=== PATIENT | male | born 1950 | race Caucasian/White ===

== ENCOUNTER 2023-03-22 12:04 | Inpatient (IN) | payer MEDICAID, MEDICARE ==
[~2023-03-22] VITALS: Ht 172.7 cm; Wt 86.2 kg
[~2023-03-22 12:04] MED LIST: ALBU6.7H3 INH; APIX5TAB PO; ATOR10TA PO; BACL-141 PO; ESCI10TA PO; FERR325T6 PO; FURO20TA4 PO; GABA-532 PO; INDA1.255 PO; LOSA50TA41 PO; METH-653 MT; POLY17PO3 MT; PROT40 PO; TERA5CAP4 PO; TOPUD PO; [UNRECOGNIZED DRUG - CODE]
[2023-03-22] MEDS ORDERED: ACETAMINOPHEN 325MG TABLET PO STA (12:13)
[2023-03-22] MEDS ORDERED: TETANUS, DIPHTHERIA, PERTUSSIS VAC/PF 0.5ML (>10YR OLD) IM ONE (12:15)
[2023-03-22] MEDS ORDERED: SODIUM CHLORIDE 0.9% 1,000 ML IV ONE (12:15)
[2023-03-22 12:50] LABS: EOSINOPHILS % 11.7 % (0.0-5.0); HEMATOCRIT. 41.4 % (42.0-52.0); HEMOGLOBIN. 13.5 g/dL (14.0-18.0); LYMPHOCYTES % 19.9 % (20.0-50.0); MEAN CORPUSCULAR HEMOGLOBIN 30.8 pg (28.0-32.0); MEAN CORPUSCULAR HGB CONC 32.6 g/dL (31.0-37.0); MEAN CORPUSCULAR VOLUME 94.6 fL (80.0-94.0); MEAN PLATELET VOLUME 7.1 fl (7.4-10.4); MONOCYTES % 10.5 % (2.0-8.0); NEUTROPHILS % 56.9 % (40.0-76.0); PLATELET 379 x1000/uL (130-400); RED BLOOD CELL COUNT 4.38 mill/uL (4.7-6.1); WHITE BLOOD COUNT 5.9 x1000/uL (4.5-11.0)
[2023-03-22 13:02] LABS: CHLORIDE 104 mEq/L (98-107); INDEX HEMOLYSI 1 (1-3); INDEX ICTERIC 1 (1-4); INDEX LIPEMIC 1 (1-3); POTASSIUM 4.4 mEq/L (3.5-5.1); SODIUM 138 mEq/L (136-145)
[2023-03-22 13:03] LABS: CALCIUM 9.9 mg/dL (8.5-10.1); INR 1.1; PROTHROMBIN TIME 11.7 sec (9.6-11.0)
[2023-03-22 13:11] LABS: ALANINE AMINOTRANSFERASE 28 IU/L (13-61); ALBUMIN 2.9 g/dL (3.4-5.0); ASPARTATE AMINOTRANSFERASE 24 IU/L (15-37); BILIRUBIN TOTAL 0.5 mg/dL (0.1-1.0); CARBON DIOXIDE 32 mEq/L (21-32); CREATININE 1.1 mg/dL (0.6-1.3); GLUCOSE 88 mg/dL (70-105); PROTEIN TOTAL 7.4 g/dL (6.0-8.3); TROPONIN I HIGH SENSITIVITY 6 ng/L (<78); UREA NITROGEN BLOOD 26 mg/dL (7-21)
[2023-03-22] MEDS ORDERED: GUAIFENESIN 200MG/10ML SUGAR FREE UDC PO PRN (14:00)
[2023-03-22] MEDS ORDERED: ONDANSETRON HCL 4MG/2ML INJ IV PRN (14:00)
[2023-03-22] MEDS ORDERED: SODIUM CHLORIDE 0.9% 1,000 ML IV SCH (14:00)
[2023-03-22] MEDS ORDERED: IPRATROPIUM/ALBUTEROL 0.5-3(2.5)MG/3ML NEB HHN PRN (14:00)
[2023-03-22] MEDS ORDERED: CLONIDINE 0.1MG TABLET PO PRN (14:00)
[2023-03-22] MEDS ORDERED: MAGNESIUM/ALUMINUM HYDROXIDE/SIMETHICONE 30ML UDC PO PRN (14:00)
[2023-03-22] MEDS ORDERED: DOCUSATE SODIUM 100MG CAPSULE PO PRN (14:00)
[2023-03-22] MEDS ORDERED: ACETAMINOPHEN 325MG TABLET PO PRN ×2 (14:00)
[2023-03-22] MEDS ORDERED: INDAPAMIDE 1.25MG TABLET PO SCH (14:30)
[2023-03-22] MEDS ORDERED: PANTOPRAZOLE 40MG DR TABLET PO SCH (14:30)
[2023-03-22] MEDS ORDERED: MEDICATION NOT ON FORMULARY EA (Escitalopram Oxalate (Lexapro) 20 MG) PO SCH (14:30)
[2023-03-22] MEDS ORDERED: METHOCARBAMOL 750MG TABLET PO PRN (14:30)
[2023-03-22 15:23] LABS: BILIRUBIN DIRECT 0.2 mg/dL (0.0-0.2); BILIRUBIN TOTAL 0.4 mg/dL (0.1-1.0); THYROID STIMULATING HORMONE 3.2 uIU/mL (0.36-3.74)
[2023-03-22 15:25] LABS: CREATINE KINASE 34 IU/L (39-308); INDEX HEMOLYSI 1 (1-3); TROPONIN I HIGH SENSITIVITY 7 ng/L (<78)
[2023-03-22 16:02] LABS: VITAMIN B12 SERUM 369 pg/mL (211-911)
[2023-03-22] MEDS: FUROSEMIDE 20MG TABLET PO SCH (16:31)
[2023-03-22] MEDS: APIXABAN 5 MG TABLET PO SCH ×2 (16:31→20:07)
[2023-03-22] MEDS: CITALOPRAM HYDROBROMIDE 10MG TABLET PO SCH (16:32)
[2023-03-22] MEDS: GABAPENTIN 300MG CAPSULE PO SCH ×2 (16:32→18:32)
[2023-03-22] MEDS: POLYETHYLENE GLYCOL 3350 (17GM) 1 DOSE PACK PO SCH (16:35)
[2023-03-22 17:16] LABS: PREALBUMIN 15.7 mg/dL (20.0-40.0)
[2023-03-22] MEDS: LOSARTAN 50 MG TABLET PO SCH (19:03)
[2023-03-22 20:00] VITALS: BP 117/81; PULSE 71; RESP 16; TEMP 97.5
[2023-03-22] MEDS: ATORVASTATIN CALCIUM 10MG TABLET PO SCH (20:07)
[2023-03-22] MEDS: PANTOPRAZOLE 40MG DR TABLET PO SCH (20:07)
[2023-03-22] MEDS: TERAZOSIN HCL 5MG CAPSULE PO SCH (21:00)
[2023-03-23] VITALS (13 sets, daily range): BP systolic 71–127; BP diastolic 36–85; PULSE 65–88; RESP 16–20; TEMP 96.5–98.6
[2023-03-23] MEDS ORDERED: SODIUM CHLORIDE 0.9% 500 ML IV ONE (00:30)
[2023-03-23 01:15] LABS: INDEX HEMOLYSI 4 (1-3)
[2023-03-23 01:22] LABS: CREATINE KINASE 77 IU/L (39-308); TROPONIN I HIGH SENSITIVITY 9 ng/L (<78)
[2023-03-23] MEDS ORDERED: SODIUM CHLORIDE 0.9% 250 ML IV ONE (02:30)
[2023-03-23] MEDS: KETOROLAC 15MG/ML VIAL IV PRN ×2 (03:20→13:12)
[2023-03-23 05:40] LABS: POTASSIUM 4.2 mEq/L (3.5-5.1)
[2023-03-23 05:42] LABS: CALCIUM 9.2 mg/dL (8.5-10.1)
[2023-03-23 05:46] LABS: CREATININE 1.4 mg/dL (0.6-1.3)
[2023-03-23] MEDS: LOSARTAN 50 MG TABLET PO SCH ×2 (08:06→08:40)
[2023-03-23] MEDS: FUROSEMIDE 20MG TABLET PO SCH (08:06)
[2023-03-23] MEDS: GABAPENTIN 300MG CAPSULE PO SCH (08:06)
[2023-03-23] MEDS: CITALOPRAM HYDROBROMIDE 10MG TABLET PO SCH (08:06)
[2023-03-23] MEDS: PANTOPRAZOLE 40MG DR TABLET PO SCH (08:07)
[2023-03-23] MEDS: APIXABAN 5 MG TABLET PO SCH ×2 (08:08→16:40)
[2023-03-23] MEDS: POLYETHYLENE GLYCOL 3350 (17GM) 1 DOSE PACK PO SCH ×2 (08:08→08:40)
[2023-03-23 08:35] LABS: EOSINOPHILS % 10.9 % (0.0-5.0); HEMATOCRIT. 32.8 % (42.0-52.0); HEMOGLOBIN. 10.5 g/dL (14.0-18.0); LYMPHOCYTES % 23.8 % (20.0-50.0); MEAN CORPUSCULAR HEMOGLOBIN 30.6 pg (28.0-32.0); MEAN CORPUSCULAR HGB CONC 32.1 g/dL (31.0-37.0); MEAN CORPUSCULAR VOLUME 95.4 fL (80.0-94.0); MEAN PLATELET VOLUME 7.1 fl (7.4-10.4); MONOCYTES % 13.4 % (2.0-8.0); NEUTROPHILS % 50.9 % (40.0-76.0); PLATELET 314 x1000/uL (130-400); RED BLOOD CELL COUNT 3.44 mill/uL (4.7-6.1); RED CELL DISTRIBUTION WIDTH 14.8 % (11.6-14.6); WHITE BLOOD COUNT 5.9 x1000/uL (4.5-11.0)
[2023-03-23] MEDS ORDERED: INDAPAMIDE 1.25MG TABLET PO SCH (09:00)
[2023-03-23] MEDS ORDERED: LOSA100T33 PO (18:02)
[2023-03-23] MEDS ORDERED: METH-773 PO (18:10)
[2023-03-23] MEDS ORDERED: IPRA3AMP9 HHN (18:28)
[2023-03-23] MEDS ORDERED: ONDA4TAB11 PO (18:28)
[2023-03-23] MEDS ORDERED: CARV3.1242 PO (18:28)
[2023-03-23] MEDS ORDERED: TAMS-11 PO (18:28)
[2023-03-23] MEDS ORDERED: BUPR1TAB34 SL (18:28)
[2023-03-23] MEDS: ATORVASTATIN CALCIUM 10MG TABLET PO SCH (21:37)
[2023-03-23] MEDS: TERAZOSIN HCL 5MG CAPSULE PO SCH (21:37)
[2023-03-24] VITALS: BP 127/70; PULSE 73; RESP 20; TEMP 96.5
[2023-03-24 04:00] VITALS: BP 112/58; PULSE 64; RESP 20; TEMP 97.4
[2023-03-24 06:40] LABS: HEMATOCRIT 35.9 % (42.0-52.0); MEAN CORPUSCULAR HEMOGLOBIN 31.7 pg (28.0-32.0); MEAN CORPUSCULAR HGB CONC 33.5 g/dL (31.0-37.0); MEAN CORPUSCULAR VOLUME 94.4 fL (80.0-94.0); PLATELET 378 x1000/uL (130-400); RED CELL DISTRIBUTION WIDTH 14.8 % (11.6-14.6); WHITE BLOOD COUNT 6.4 x1000/uL (4.5-11.0)
[2023-03-24 06:58] LABS: POTASSIUM 4.2 mEq/L (3.5-5.1)
[2023-03-24 07:05] LABS: CALCIUM 9.4 mg/dL (8.5-10.1); CREATININE 1.4 mg/dL (0.6-1.3)
[2023-03-24 07:23] VITALS: BP 112/58; PULSE 64; TEMP 97.4; O2SAT 96
[2023-03-24 08:00] VITALS: BP 124/69; PULSE 68; RESP 18; TEMP 97.3
[2023-03-24] MEDS: FUROSEMIDE 20MG TABLET PO SCH (08:02)
[2023-03-24] MEDS: CITALOPRAM HYDROBROMIDE 10MG TABLET PO SCH (08:02)
[2023-03-24] MEDS: APIXABAN 5 MG TABLET PO SCH (08:02)
[2023-03-24] MEDS: POLYETHYLENE GLYCOL 3350 (17GM) 1 DOSE PACK PO SCH (08:04)
[2023-03-24] MEDS ORDERED: FAMOTIDINE 20MG TABLET PO SCH (09:00)
== END 2023-03-24 09:50 | DRG 605 ==
LOC: ER 12:20 → 6EST 15:03 → EDBEDREQ 15:10 → EDBEDREQTM 15:10
PROVIDERS: ADMIT Internal Medicine; ATTEND Internal Medicine
PROC: 0HQ1XZZ Repair Face Skin, External Approach (ICD-10-PCS; principal; 2023-03-22)
DX: S01.81XA Laceration without foreign body of other part of head, initial encounter (principal); F03.93 Unspecified dementia, unspecified severity, with mood disturbance; E78.00 Pure hypercholesterolemia, unspecified; I11.0 Hypertensive heart disease with heart failure; I48.91 Unspecified atrial fibrillation; I50.9 Heart failure, unspecified; K21.9 Gastro-esophageal reflux disease without esophagitis; F11.10 Opioid abuse, uncomplicated; F20.9 Schizophrenia, unspecified; F31.9 Bipolar disorder, unspecified; Z79.01 Long term (current) use of anticoagulants; Z79.899 Other long term (current) drug therapy; Z86.16 Personal history of COVID-19; Z86.718 Personal history of other venous thrombosis and embolism; Z88.8 Allergy status to other drugs, medicaments and biological substances; Z90.49 Acquired absence of other specified parts of digestive tract; Z90.81 Acquired absence of spleen; Z95.0 Presence of cardiac pacemaker; Z99.3 Dependence on wheelchair; W06.XXXA Fall from bed, initial encounter; Y93.89 Activity, other specified; Y92.89 Other specified places as the place of occurrence of the external cause; Y99.8 Other external cause status
CPT/HCPCS: 36415; 71045; 73560; 73590; 80048; 80053; 80076; 82550; 82607; 82746; 83540; 83550; 84134; 84443; 84484; 85025; 85027; 86850; 86900; 90715; 93005; 93880; 93970; 99285; A6261; J1885; J7030